=== PATIENT | female | born 1950 | race Caucasian/White ===

== ENCOUNTER 2016-11-26 16:55 | Emergency (ER) | payer OTHER ==
[2016-11-26 17:12] VITALS: TEMP 98.4; O2SAT 97
[2016-11-26 17:56] VITALS: BP 142/75; PULSE 72; RESP 18
--- NOTE | 2016-11-26 17:58 | C.PDOC ---
History Of Present Illness 66 year old female presents to the ED with complaints of right ankle foot pain and swelling for 8 days. Patient states she was walking when she twisted her ankle. She has been applying ice and warm compresses with minimal relief. Patient saw her PMD yesterday and was instructed to come to the ED for further evaluation. She denies changes in sensation, fever, or leg pain. Time Seen by Provider: 11/26/16 17:24 Chief Complaint (Nursing): Lower Extremity Problem/Injury History Per: Patient History/Exam Limitations: no limitations Onset/Duration Of Symptoms: Days (8 days) Current Symptoms Are (Timing): Still Present Recent travel outside of the [place]: No Additional History Per: Prior Records (patient's PMD) - Ankle/Foot Description Of Injury: Twisted Past Medical History Reviewed: Historical Data, Nursing Documentation, Vital Signs Vital Signs: Last Vital Signs Temp 98.4 F 11/26/16 17:11 Pulse 72 11/26/16 17:53 Resp 18 11/26/16 17:53 BP 142/75 11/26/16 17:53 Pulse Ox 97 11/26/16 18:11 - Medical History PMH: HTN Family History: States: Unknown Family Hx - Social History Hx Alcohol Use: No Hx Substance Use: No - Immunization History Hx Tetanus Toxoid Vaccination: No Hx Influenza Vaccination: No Hx Pneumococcal Vaccination: No Review Of Systems Constitutional: Negative for: Fever Cardiovascular: Negative for: Chest Pain Respiratory: Negative for: Shortness of Breath Gastrointestinal: Negative for: Nausea, Vomiting Musculoskeletal: Positive for: Foot Pain (right ankle pain ) Neurological: Negative for: Weakness, Numbness Physical Exam - Physical Exam Appears: Non-toxic, No Acute Distress Skin: Warm, Dry Head: Atraumatic Eye(s): bilateral: Normal Inspection, EOMI Nose: Normal Oral Mucosa: Moist Chest: Symmetrical Respiratory: No Accessory Muscle Use Extremity: No Normal ROM (decreased ROM of the right ankle, secondary to pain), Tenderness (to lateral right ankle ), No Calf Tenderness, Capillary Refill ( good capillary refill, less than two seconds ), No Deformity, Swelling (to lateral right ankle ) Pulses: Left Dorsalis Pedis: Normal, Right Dorsalis Pedis: Normal Neurological/Psych: Oriented x3, Normal Speech, Normal Motor, Normal Sensation ED Course And Treatment O2 Sat by Pulse Oximetry: 97 (room air ) - CT Scan/US Right Ankle X-Ray Other Rad Studies (CT/US): Interpreted By Me, Read By Radiologist CT/US Interpretation: No fractures. Progress Note: Right ankle X-Ray was ordered. Patient was given Tylenol and ice was applied to the ankle. Air cast splint applied by RN. Instructed to follow up with ortho in 1-2 days. Disposition - Disposition Referrals: Carrol Campbell MD [Primary Care Provider] - Disposition: HOME/ ROUTINE Disposition Time: 18:09 Condition: STABLE Additional Instructions: Rest, ice and elevate. Vaya a kuhn mdico o la clnica en 2-5 cade sin falta, para mas evaluacin. [place] los medicamentos jana indicado. Volver a la lalito de emergencia en cualquier momento si los sntomas persisten o empeoran. Prescriptions: Naproxen [Naprosyn] 1 tab PO BID PRN #20 tab PRN Reason: Pain Instructions: Ankle Sprain (ED) Forms: [employer] (Indonesian), [employer] (Malay) Print Language: INDIAN - Clinical Impression Clinical Impression: Ankle sprain - Scribe Statement The provider has reviewed the documentation as recorded by the Scribe Nandini Shields All medical record entries made by the Scribe were at my direction and personally dictated by me. I have reviewed the chart and agree that the record accurately reflects my personal performance of the history, physical exam, medical decision making, and the department course for this patient. I have also personally directed, reviewed, and agree with the discharge instructions and disposition.
--- NOTE | 2016-11-27 08:18 | RAD ---
PROCEDURE: Right Ankle Radiographs. HISTORY: post injury COMPARISON: None FINDINGS: BONES: No fracture. JOINTS: Normal. No osteoarthritis. Ankle mortise maintained. Talar dome intact SOFT TISSUES: Lateral perimalleolar soft tissue swelling OTHER FINDINGS: None. IMPRESSION: Lateral perimalleolar soft tissue swelling. No fracture or dislocation
== END 2016-11-26 18:23 | disposition home or self-care (01) ==
LOC: SUPCPDRO 16:55 → C.ER 16:55
DX: S93.401A Sprain of unspecified ligament of right ankle, initial encounter (principal); X50.0XXA Overexertion from strenuous movement or load, initial encounter; Y93.89 Activity, other specified; Y92.89 Other specified places as the place of occurrence of the external cause